=== PATIENT | female | born 1995 | race Caucasian/White ===

== ENCOUNTER → 2017-10-27 | Outpatient (CLI) | payer OTHER ==
[~2017-10-27] MED LIST: CONTRAST GIVEN MC
[2017-10-27] MEDS: IOHEXOL 300 MG/ML 100ML VIAL. IV (12:02)
[2017-10-27] MEDS: IOHEXOL 240 MG/ML 50ML VIAL. PO (12:02)
== END | disposition home or self-care (01) ==
LOC: KCIC CT 10:18
DX: L68.0 Hirsutism (principal); N92.6 Irregular menstruation, unspecified; E34.9 Endocrine disorder, unspecified; J98.11 Atelectasis
CPT/HCPCS: 72193; 74170; Q9966; Q9967